=== PATIENT | male | born 1960 | race African-American/Black ===

== ENCOUNTER 2017-04-09 12:06 | Emergency (ER) | payer MEDICAID ==
[~2017-04-09] VITALS: Ht 175.3 cm; Wt 90.7 kg
[2017-04-09] MEDS ORDERED: CORTISPORIN EAR10 ML LEFT EAR (12:59)
[2017-04-09] MEDS ORDERED: AMLODIPINE BESYL5 MG ORAL (13:10)
[2017-04-09 13:16] VITALS: BP 204/104
--- NOTE | 2017-04-09 14:02 | Emergency Room Report ---
History of Present Illness General Chief Complaint: Flu Like Symptoms Source: Patient Present Illness [facility] The patient is a 56-year-old male who denies medical history presenting for sore throat, dry cough, subjective fever, and left ear pain on and off for the past 2 weeks. Pain described as a 6/10 dull ache to the left ear and throat. He has not tried any medication for the pain. He denies any other symptoms including nausea, vomiting, shortness of breath, chest pain, rash, headache, dizziness, blurred vision, neck pain or stiffness Allergies: Coded Allergies: No Known Allergies (Unverified , 04/09/17) Patient History Past Medical History: see triage record Pertinent Family History: none Reviewed Nursing Documentation: PMH: Agreed, PSxH: Agreed Nursing Documentation-PMH Past Medical History: No History, Except For Hx Gastrointestinal Problems: No - BACK SURGERY Review of Systems All Other Systems: negative except mentioned in HPI Physical Exam Vital Signs Date Time Temp Pulse Resp B/P Pulse Ox O2 Delivery O2 Flow Rate FiO2 04/09/17 12:16 98.1 84 20 219/128 99 Room Air Sp02 EP Interpretation: reviewed, normal General Appearance: no apparent distress, alert, GCS 15, non-toxic Head: normocephalic, atraumatic Eyes: bilateral eye PERRL, bilateral eye normal inspection ENT: normal pharynx, normal voice, uvula midline, nasal congestion, other - L EAC has white exudate. Unable to see TM due to cerumen. TTP Neck: full range of motion, supple/symm/no masses Respiratory: chest non-tender, lungs clear, normal breath sounds, no wheezing, speaking full sentences Cardiovascular #1: regular rate, rhythm, no edema Musculoskeletal: back normal, gait/station normal, normal range of motion, non- tender Neurologic: alert, oriented x3, responsive, motor strength/tone normal, sensory intact, speech normal Psychiatric: judgement/insight normal, memory normal, mood/affect normal, no suicidal/homicidal ideation Skin: normal color, no rash, warm/dry, well hydrated Medical Decision Making PA Attestation Dr. Mendez is my supervising physician. Patient management was discussed with my supervising physician Diagnostic Impression: Primary Impression: Otitis externa Qualified Codes: H60.502 - Unspecified acute noninfective otitis externa, left ear Additional Impression: Hypertension Qualified Codes: I10 - Essential (primary) hypertension ER Course The patient is a 56-year-old male presenting for URI symptoms Differential diagnoses considered but not limited to: Pharyngitis, sinusitis, otitis media, otitis externa, bronchitis, pneumonia Physical exam: Blood pressure significantly elevated. Afebrile. No apparent distress HEENT exam reveals left external auditory canal tenderness, erythema, and white exudate. Otherwise unremarkable Lungs are clear to auscultation bilaterally. RRR Chest x-ray is unremarkable Patient is given clonidine for blood pressure with a significant decrease by the time of discharge. He is discharged home with a prescription for Cortisporin and amlodipine. He will keep a blood pressure Journal at home and follow up with his primary doctor as soon as possible for discussion of antihypertensive medication. ER precautions are given Chest X-Ray Diagnostic Results Chest X-Ray Diagnostic Results : Chest X-Ray Ordered: Yes # of Views/Limited/Complete: 1 View Indication: Other - cough EP Interpretation: Yes Interpretation: no consolidation, no effusion, no pneumothorax, no acute cardiopulmonary disease Impression: No acute disease Interpreting ER Provider: DO YANNA Strange Scribe Text I am acting as scribe for my supervising physician. My supervising physician's interpretation of the chest xrays are there is no consolidation, no effusion, no acute cardiopulmonary disease, no pneumothorax Last Vital Signs Date Time Temp Pulse Resp B/P Pulse Ox O2 Delivery O2 Flow Rate FiO2 04/09/17 13:16 71 18 204/104 99 Room Air 04/09/17 13:16 97.8 Status: improved Disposition: HOME, SELF-CARE Condition: Improved Scripts Amlodipine Besylate* (AMLODIPINE BESYLATE*) 5 Mg Tablet 5 MG ORAL DAILY, #14 TAB Prov: SOLOMON LOVEY P.A. 04/09/17 Neomycin/Polymyxin B Sulf/Hc* (CORTISPORIN EAR SOLUTION*) 10 Ml Solution 4 DROP LEFT EAR QID, #10 ML 0 Refills Prov: TERBRENTAN,ELLIE P.A. 04/09/17 Referrals: NOT CHOSEN [facility]/,REFERRING (PCP) Patient Instructions: Otitis Externa, Hypertension Additional Instructions: I discussed my findings with the patient. All questions and concerns have been answered. Treatment and medication compliance have been addressed. I advised the patient that they need to follow up with primary doctor as soon as possible. Return to ED if pain remains or worsens, cough worsens or remains, you notice blood in your sputum, you notice wheezing, you experience a fever, chest pain, shortness of breath, or if needed for any reason. Patient verbalized understanding of discharge instructions. ELLIE LOVE Apr 09, 2017 14:02
--- NOTE | 2017-04-09 14:37 | Diagnostic Imaging Report ---
Indication: COUGH Technique: Single portable AP view of the chest. Findings: Comparison: None. Calcified nodules lateral right lung base, right hilum. The bones and extra pulmonary soft tissues, cardiomediastinal silhouette, pulmonary vasculature and parenchyma, and pleural surfaces are otherwise unremarkable. IMPRESSION: Calcified old granulomatous disease Otherwise negative portable AP chest.
== END 2017-04-09 13:23 | disposition home or self-care (01) ==
LOC: EMR 12:50
DX: H60.502 Unspecified acute noninfective otitis externa, left ear (principal); I10 Essential (primary) hypertension; R05 Cough
CPT/HCPCS: 71010; 99283